=== PATIENT | male | born 1940 | race Asian ===

== ENCOUNTER 2020-05-17 12:17 | Inpatient (IN) | payer MEDICARE, OTHER ==
[2020-05-17] MEDS ORDERED: SODIUM CHLORIDE 0.9% 1,000 ML IV STA (13:25)
[2020-05-17] MEDS ORDERED: ONDANSETRON 4 MG/2 ML VIAL IVP STA (13:25)
[2020-05-17] MEDS ORDERED: MORPHINE SULFATE 4 MG/ML SYRINGE IVP STA (13:25)
[2020-05-17 13:36] LABS: Basophils % (A) 0 %; Eosinophils # (A) 0.1 k/uL (0-0.7); Eosinophils % (A) 1 %; HCT 45.7 % (39.0-53.0); HGB 15.7 gm/dL (13.0-17.5); Lymphocytes # (A) 0.8 k/uL (1.0-4.8); Lymphocytes % (A) 7 %; MCH 35.2 pg (25.0-35.0); MCHC 34.2 g/dL (31.0-37.0); MCV 102.9 fL (80.0-100.0); Macrocytosis Slight; Mean Platelet Volume 6.8; Monocytes # (A) 0.4 k/uL (0-1.0); Monocytes % (A) 3 %; Neutrophils # (A) 11.3 k/uL (1.3-7.7); Neutrophils % (A) 89 %; Platelet Count 138 k/uL (150-450); RBC 4.45 m/uL (4.30-5.90); RDW 12.9 % (11.5-15.5); WBC 12.7 k/uL (3.8-10.6)
[2020-05-17 13:41] LABS: ALT 32 U/L (4-49); AST 46 U/L (17-59); African American GFR (CKD) >90 (>60 ml/min/1.73 sqM); Albumin 4.9 g/dL (3.5-5.0); Alkaline Phosphatase 91 U/L (38-126); Amylase 97 U/L (30-110); Anion Gap 13 mmol/L; Blood Urea Nitrogen 13 mg/dL (9-20); Carbon Dioxide 25 mmol/L (22-30); Chloride 97 mmol/L (98-107); Glucose 172 mg/dL (74-99); Lipase 89 U/L (23-300); Non-African American GFR(CKD) 86 (>60 ml/min/1.73 sqM); Potassium 4.2 mmol/L (3.5-5.1); Sodium 135 mmol/L (137-145); Total Bilirubin 1.5 mg/dL (0.2-1.3); Total Protein 8.1 g/dL (6.3-8.2)
[2020-05-17 13:49] LABS: Prothrombin Time 10.3 sec (9.0-12.0)
[2020-05-17 13:54] LABS: Partial Thromboplastin Time 21.9 sec (22.0-30.0)
--- NOTE | 2020-05-17 14:33 | ED ---
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 Patient states the pain is near his umbilical region, no radiation. They did try some over -the-counter medications without improvement in his pain. He has been having normal bowel movements, does feel slightly constipated. He denies any fever or chills. He denies any chest pain or shortness of breath. He states the pain is severe, 9/10. He does have history of small colon resection secondary to cancer, abdominal aorta repair, cholecystectomy. Patient has no further complaints at this time. Upon arrival to the ER, his vitals are stable. - Related Data Home Medications Medication Instructions Recorded Confirmed Cimetidine 800 mg PO BID 05/17/20 05/17/20 Folic Acid 1 mg PO DAILY 05/17/20 05/17/20 Glucosamine Sulfate 1,000 mg PO DAILY 05/17/20 05/17/20 Methotrexate 50mg/2ml 50 mg IM TU 05/17/20 05/17/20 Metoprolol Tartrate [Lopressor] 50 mg PO BID 05/17/20 05/17/20 Multivitamins, Thera [Multivitamin 1 tab PO DAILY 05/17/20 05/17/20 (formulary)] [place]-3 Fatty Acids/Fish Oil [Fish 1 cap PO DAILY 05/17/20 05/17/20 Oil 1,000 mg Softgel] Pravastatin Sodium [Pravachol] 40 mg PO DAILY 05/17/20 05/17/20 lisinopriL [Zestril] 2.5 mg PO DAILY 05/17/20 05/17/20 metFORMIN HCL [metFORMIN HCL ER] 1,000 mg PO BID 05/17/20 05/17/20 sulfaSALAzine [Sulfasalazine] 1,000 mg PO TID 05/17/20 05/17/20 Allergies Allergy/AdvReac Type Severity Reaction Status Date / Time No Known Allergies Allergy Verified 05/17/20 14:25 Review of Systems ROS Statement: Those systems with pertinent positive or pertinent negative responses have been documented in the HPI. ROS Other: All systems not noted in ROS Statement are negative. Past Medical History Past Medical History: Cancer, Diabetes Mellitus Additional Past Medical History / Comment(s): colon cancer 2002, AAA repaired 04/2019 at [facility]. History of Any Multi-Drug Resistant Organisms: None Reported Past Surgical History: Cholecystectomy Additional Past Surgical History / Comment(s): gallstone removal. Smoking Status: Former smoker Past Alcohol Use History: None Reported Past Drug Use History: None Reported General Exam - General Exam Comments Initial Comments: GENERAL: Patient is well-developed and well-nourished. Patient is nontoxic and in mild acute distress. HEAD: Atraumatic, normocephalic. EYES: Pupils equal round and reactive to light, extraocular movements intact, sclera anicteric, conjunctiva are normal. Eyelids were unremarkable. ENT: TMs normal, nares patent, oropharynx clear without exudates. Moist mucous membranes. NECK: Normal range of motion, supple without lymphadenopathy or JVD. LUNGS: Unlabored respirations. Breath sounds clear to auscultation bilaterally and equal. No wheezes rales or rhonchi. HEART: Regular rate and rhythm without murmurs, rubs or gallops. ABDOMEN: Soft, patient appears to be tender to the entire abdomen, no specific area pain, positive guarding. normoactive bowel sounds. No masses appreciated. : Deferred MUSCULOSKELETAL: Normal extremities with adequate strength and normal range of motion, no pitting or edema. No clubbing or cyanosis. NEUROLOGICAL: Patient is alert and oriented x 3. Motor and sensory are also intact. Cranial nerves II through XII grossly intact. Symmetrical smile. Normal speech, normal gait. PSYCH: Normal mood, normal affect. SKIN: Warm, Dry, normal turgor, no rashes or lesions noted. Limitations: no limitations Course Vital Signs 05/17/20 05/17/20 12:29 15:24 Temperature 98.0 F Pulse Rate 79 62 Respiratory 18 18 Rate Blood Pressure 145/86 145/97 O2 Sat by Pulse 97 98 Oximetry Medical Decision Making - Medical Decision Making Patient is a 80-year-old male with history of diabetes, presenting for abdominal pain that started last night. It is severe in nature, tender to the entire abdomen, no specific area. His vitals are stable. He does have history of multiple abdominal surgeries including colon resection secondary to cancer. Labs show a white count 12.7, normal hemoglobin. Lactic acid is 2.0. Troponin is normal, normal EKG. CT of the abdomen shows a small bowel distraction of unknown etiology in the right mid abdomen, mid ileum. Patient was given fluids and pain control, currently reports on stable pain. He denies any nausea or vomiting at this time. I discussed case with Dr. Houston who agrees to admission with Dr. Bojorquez on consult, who I also spoke with. Patient is in agreement with this plan of care. We will place an NG tube. Case discussed with Dr. Mays. - Lab Data Result diagrams: 05/17/20 13:20 05/17/20 13:20 Lab Results 05/17/20 05/17/20 05/17/20 Range/Units 13:20 13:20 13:20 WBC 12.7 H (3.8-10.6) k/uL RBC 4.45 (4.30-5.90) m/uL Hgb 15.7 (13.0-17.5) gm/dL Hct 45.7 (39.0-53.0) % MCV 102.9 H (80.0-100.0) fL MCH 35.2 H (25.0-35.0) pg MCHC 34.2 (31.0-37.0) g/dL RDW 12.9 (11.5-15.5) % Plt Count 138 L (150-450) k/uL MPV 6.8 Neutrophils % 89 % Lymphocytes % 7 % Monocytes % 3 % Eosinophils % 1 % Basophils % 0 % Neutrophils # 11.3 H (1.3-7.7) k/uL Lymphocytes # 0.8 L (1.0-4.8) k/uL Monocytes # 0.4 (0-1.0) k/uL Eosinophils # 0.1 (0-0.7) k/uL Basophils # 0.0 (0-0.2) k/uL Macrocytosis Slight PT 10.3 (9.0-12.0) sec INR 1.0 (<1.2) APTT 21.9 L (22.0-30.0) sec Sodium 135 L (137-145) mmol/L Potassium 4.2 (3.5-5.1) mmol/L Chloride 97 L (98-107) mmol/L Carbon Dioxide 25 (22-30) mmol/L Anion Gap 13 mmol/L BUN 13 (9-20) mg/dL Creatinine 0.80 (0.66-1.25) mg/dL Est GFR (CKD-EPI)AfAm >90 (>60 ml/min/1.73 sqM) Est GFR (CKD-EPI)NonAf 86 (>60 ml/min/1.73 sqM) Glucose 172 H (74-99) mg/dL Plasma Lactic Acid Josef (0.7-2.0) mmol/L Calcium 10.0 (8.4-10.2) mg/dL Total Bilirubin 1.5 H (0.2-1.3) mg/dL AST 46 (17-59) U/L ALT 32 (4-49) U/L Alkaline Phosphatase 91 (38-126) U/L Troponin I (0.000-0.034) ng/mL Total Protein 8.1 (6.3-8.2) g/dL Albumin 4.9 (3.5-5.0) g/dL Amylase 97 (30-110) U/L Lipase 89 (23-300) U/L 05/17/20 05/17/20 Range/Units 13:20 14:27 WBC (3.8-10.6) k/uL RBC (4.30-5.90) m/uL Hgb (13.0-17.5) gm/dL Hct (39.0-53.0) % MCV (80.0-100.0) fL MCH (25.0-35.0) pg MCHC (31.0-37.0) g/dL RDW (11.5-15.5) % Plt Count (150-450) k/uL MPV Neutrophils % % Lymphocytes % % Monocytes % % Eosinophils % % Basophils % % Neutrophils # (1.3-7.7) k/uL Lymphocytes # (1.0-4.8) k/uL Monocytes # (0-1.0) k/uL Eosinophils # (0-0.7) k/uL Basophils # (0-0.2) k/uL Macrocytosis PT (9.0-12.0) sec INR (<1.2) APTT (22.0-30.0) sec Sodium (137-145) mmol/L Potassium (3.5-5.1) mmol/L Chloride (98-107) mmol/L Carbon Dioxide (22-30) mmol/L Anion Gap mmol/L BUN (9-20) mg/dL Creatinine (0.66-1.25) mg/dL Est GFR (CKD-EPI)AfAm (>60 ml/min/1.73 sqM) Est GFR (CKD-EPI)NonAf (>60 ml/min/1.73 sqM) Glucose (74-99) mg/dL Plasma Lactic Acid Josef 2.0 (0.7-2.0) mmol/L Calcium (8.4-10.2) mg/dL Total Bilirubin (0.2-1.3) mg/dL AST (17-59) U/L ALT (4-49) U/L Alkaline Phosphatase (38-126) U/L Troponin I 0.013 (0.000-0.034) ng/mL Total Protein (6.3-8.2) g/dL Albumin (3.5-5.0) g/dL Amylase (30-110) U/L Lipase (23-300) U/L - EKG Data EKG Comments: Normal sinus rhythm, normal ECG, no signs of acute ischemia. Ventricular rate 75, [place] interval 150, QTC 418. Disposition Clinical Impression: Small bowel obstruction Disposition: ADMITTED IP TO THIS [facility] Condition: Stable Referrals: Nonstaff,Physician [Primary Care Provider] - 1-2 days Decision Date: 05/17/20 Decision Time: 15:53
--- NOTE | 2020-05-17 15:37 | CT ---
EXAMINATION TYPE: CT abdomen pelvis w con DATE OF EXAM: 05/17/2020 COMPARISON: None INDICATION: Mid abdominal pain. DLP: 807.8 mGycm, Automated exposure control for dose reduction was used. CONTRAST: 100 mL of Isovue 300. Study performed without Oral Contrast TECHNIQUE: Axial images were obtained from above the diaphragm to the pubic rami in the axial plane a t 5 mm thick sections. Reconstructed images are reviewed on the computer in the coronal plane. FINDINGS: Limited CT sections are obtained the lung bases. There is some increased opacities within the bilate ral lung bases may be related to atelectasis. A small 0.3 cm nodule is at the posterior lateral right lung base.. CT ABDOMEN: Some minimal ascites is adjacent to the liver. Small amount of free fluid is within the d ependent pelvis. Liver: Normal Spleen: Normal Pancreas: Normal Adrenal glands: The adrenal glands are normal. Gallbladder: Normal Kidneys: No masses are evident. No hydronephrosis is present. No cysts are present. Delayed images were obtained through the kidneys, which remain unremarkable. Aorta: Vascular calcification is within the aorta. Inferior vena cava: Normal. CT PELVIS: There are multiple dilated small bowel loops containing fluid. This extends to the right midabdomen. The ileum distal to that is decompressed and extends to the anastomosis. Series 201 image 51, series 202 image 37. Urinary bladder: Normal. Genitourinary structures: Prostate is prominent with calcifications. Osseous structures: No suspicious lytic or sclerotic lesions are evident. Report was called to the emergency room physician by Dr. Deleon by telephone at the time of interpre tation. IMPRESSIONS: 1. Small bowel obstruction of unknown etiology in the right mid abdomen mid ileum.
[2020-05-17] MEDS ORDERED: MORPHINE SULFATE 4 MG/ML SYRINGE IV PRN (15:50)
[2020-05-17] MEDS ORDERED: ONDANSETRON 4 MG/2 ML VIAL IVP PRN (15:50)
[2020-05-17] MEDS ORDERED: NALOXONE 0.4 MG/ML 1 ML VIAL IV PRN (15:50)
[2020-05-17 16:54] LABS: Appearance,Urine Clear (Clear); Bilirubin,Urine Negative (Negative); Blood,Urine Negative (Negative); Color,Urine Yellow; Glucose,Urine (UA) Negative (Negative); Ketones,Urine 1+ (Negative); Leukocyte Esterase,Urine Negative (Negative); Nitrite,Urine Negative (Negative); Protein,Urine Negative (Negative); Specific Gravity,Urine 1.032 (1.001-1.035); Urobilinogen,Urine <2.0 mg/dL (<2.0)
[2020-05-17] MEDS: SODIUM CHLORIDE 0.9% 1,000 ML IV SCH (18:13)
--- NOTE | 2020-05-17 18:51 | XR ---
EXAMINATION TYPE: XR chest 1V DATE OF EXAM: 05/17/2020 COMPARISON: NONE HISTORY: Check tube placement TECHNIQUE: Single view FINDINGS: There is nasogastric tube. The tip is not well seen. Tip is probably in the distal esophagu s. There is some pleural reaction and atelectasis right lung base. There is no heart failure. IMPRESSION: NG tube not well seen and probably in the distal esophagus. Abdomen film would be helpful to visualize the tip of the tube.
--- NOTE | 2020-05-18 09:28 | P.HPIM ---
History of Present Illness H&P Date: 05/17/20 Chief Complaint: Abdominal pain 80-year-old male, history of abdominal aorta repair last year, colon cancer 2002, diabetes, presenting to the emergency Department with complaints of abdominal pain that started yesterday evening. Patient states the pain is near his umbilical region, no radiation. They did try some [id number] medications without improvement in his pain. He has been having normal bowel movements, does feel slightly constipated. He denies any fever or chills. He denies any chest pain or shortness of breath. He states the pain is severe, 9/10. He does have history of small colon resection secondary to cancer, abdominal aorta repair, cholecystectomy. Patient has no further complaints at this time. Upon arrival to the ER, his vitals are stable. Patient does have history of multiple abdominal surgeries Lab work done in ED reveals a white blood count of 12.7, hemoglobin 15.7 and platelet count of 138; lactic acid of 2.0; sodium 135 crit, potassium 4.2, BUN 13, creatinine 0.80 and blood glucose of 172; CT of the abdomen shows small bowel obstruction in right mid abdomen and mid ileum with questionable etiology Patient will have an NG tube placed and will be admitted for further evaluation by general surgery Review of Systems REVIEW OF SYSTEMS: CONSTITUTIONAL: No fever, no malaise, no fatigue. HEENT: No recent visual problems or hearing problems. Denied any sore throat. CARDIOVASCULAR: No chest pain, orthopnea, PND, no palpitations, no syncope. PULMONARY: No shortness of breath, no cough, no hemoptysis. GASTROINTESTINAL: No diarrhea, no nausea, no vomiting, no abdominal pain. NEUROLOGICAL: No headaches, no weakness, no numbness. HEMATOLOGICAL: Denies any bleeding or petechiae. GENITOURINARY: Denies any burning micturition, frequency, or urgency. MUSCULOSKELETAL/RHEUMATOLOGICAL: Denies any joint pain, swelling, or any muscle pain. ENDOCRINE: Denies any polyuria or polydipsia. The rest of the 14-point review of systems is negative. Past Medical History Past Medical History: Cancer, Diabetes Mellitus Additional Past Medical History / Comment(s): colon cancer 2002, AAA repaired 04/2019 at [facility]. History of Any Multi-Drug Resistant Organisms: None Reported Past Surgical History: Cholecystectomy Additional Past Surgical History / Comment(s): gallstone removal. Smoking Status: Former smoker Past Alcohol Use History: None Reported Past Drug Use History: None Reported Medications and Allergies Home Medications Medication Instructions Recorded Confirmed Type Cimetidine 800 mg PO BID 05/17/20 05/17/20 History Folic Acid 1 mg PO DAILY 05/17/20 05/17/20 History Glucosamine Sulfate 1,000 mg PO DAILY 05/17/20 05/17/20 History Methotrexate 50mg/2ml 50 mg IM TU 05/17/20 05/17/20 History Metoprolol Tartrate [Lopressor] 50 mg PO BID 05/17/20 05/17/20 History Multivitamins, Thera [Multivitamin 1 tab PO DAILY 05/17/20 05/17/20 History (formulary)] [place]-3 Fatty Acids/Fish Oil [Fish 1 cap PO DAILY 05/17/20 05/17/20 History Oil 1,000 mg Softgel] Pravastatin Sodium [Pravachol] 40 mg PO DAILY 05/17/20 05/17/20 History lisinopriL [Zestril] 2.5 mg PO DAILY 05/17/20 05/17/20 History metFORMIN HCL [metFORMIN HCL ER] 1,000 mg PO BID 05/17/20 05/17/20 History sulfaSALAzine [Sulfasalazine] 1,000 mg PO TID 05/17/20 05/17/20 History Allergies Allergy/AdvReac Type Severity Reaction Status Date / Time adhesive tape AdvReac Intermediate blisters/skin Verified 05/18/20 05:06 peeling Physical Exam Vitals: Vital Signs Temp Pulse Resp BP Pulse Ox 05/17/20 15:24 62 18 145/97 98 05/17/20 12:29 98.0 F 79 18 145/86 97 Intake and Output 05/17/20 05/17/20 05/17/20 06:59 14:59 22:59 Other: Weight 71.668 kg General appearance: Present: average body habitus, cooperative, no acute distress EENT; EOMI, PERRLA, normal appearance; normal oropharynx Neck: Present: normal ROM. Absent: lymphadenopathy, rigidity, thyromegaly Carotids: negative: bruit present Thyroid: bilateral: normal size, negative: enlarged, nodule Respiratory: bilateral: CTA, negative: rales, rhonchi, wheezing Cardiovascular; Rhythm: regular; normal: S1, S2; Absent: systolic murmur, diastolic murmur Gastrointestinal; Soft, patient appears to be tender to the entire abdomen, no specific area pain, positive guarding. normoactive bowel sounds. No masses appreciated. Genitourinary Comment(s): deferred Integumentary: Present: normal turgor. Absent: jaundiced, rash, ulcer Neurologic: Present: CNII-XII intact. Absent: focal deficits Musculoskeletal: Present: gait normal, strength equal bilaterally Psychiatric: Present: A&O x's 3, appropriate affect, intact judgment & insight Results CBC & Chem 7: 05/17/20 13:20 05/17/20 13:20 Labs: Abnormal Lab Results - Last 24 Hours (Table) 05/17/20 05/17/20 05/17/20 Range/Units 13:20 13:20 13:20 WBC 12.7 H (3.8-10.6) k/uL MCV 102.9 H (80.0-100.0) fL MCH 35.2 H (25.0-35.0) pg Plt Count 138 L (150-450) k/uL Neutrophils # 11.3 H (1.3-7.7) k/uL Lymphocytes # 0.8 L (1.0-4.8) k/uL APTT 21.9 L (22.0-30.0) sec Sodium 135 L (137-145) mmol/L Chloride 97 L (98-107) mmol/L Glucose 172 H (74-99) mg/dL Total Bilirubin 1.5 H (0.2-1.3) mg/dL Urine Ketones (Negative) 05/17/20 Range/Units 16:25 WBC (3.8-10.6) k/uL MCV (80.0-100.0) fL MCH (25.0-35.0) pg Plt Count (150-450) k/uL Neutrophils # (1.3-7.7) k/uL Lymphocytes # (1.0-4.8) k/uL APTT (22.0-30.0) sec Sodium (137-145) mmol/L Chloride (98-107) mmol/L Glucose (74-99) mg/dL Total Bilirubin (0.2-1.3) mg/dL Urine Ketones 1+ H (Negative) Assessment and Plan Assessment: 1. Small bowel obstruction - Patient will be admitted to general medical floor; Gen. surgery is consulted and recommendations are pending - NG tube placed in ED and will remain to suction; keep patient nothing by mouth; symptomatic treatment for abnormal pain and nausea with morphine sulfate and Zofran - Continue with IV fluids normal saline at rate of 75 mL an hour 2. Leukocytosis; possibly reactive; no signs of sepsis; we will monitor CBC closely and initiate sepsis workup if WBC continues to trend up 3. Hyperglycemia/diabetes mellitus; hold metformin; monitor Accu-Cheks every before meals and at bedtime with insulin sliding scale 4. Hypertension; patient takes Zestril 2.5 mg daily and metoprolol 50 mg twice a day; we will hold oral antihypertensive therapy until patient is nothing by mouth; we will use IV hydralazine for blood pressure control as needed 5. Hyperlipidemia; patient takes Pravachol 40 mg daily; we will hold till bowel obstruction resolved DVT prophylaxis; SCDs CODE STATUS; full code
[2020-05-18] MEDS: SODIUM CHLORIDE 0.9% 1,000 ML IV SCH ×2 (10:02→21:40)
--- NOTE | 2020-05-18 10:50 | P.GSCN ---
History of Present Illness Consult date: 05/18/20 History of present illness: 80-year-old male presented to the emergency department with complaints of abdominal pain. He states that the pain was in the periumbilical region and nonradiating. He states that the pain was quite intense. Denied any nausea or vomiting but did admit to abdominal distention. He states he has never had a previous symptomatology as this. He does have a surgical history of colon resection secondary to colon cancer along with cholecystectomy. He also has had an abdominal aortic repair that does appear endovascular. On workup, patient did have CT of the abdomen and pelvis which was concerning for a small bowel obstruction. Secondary to this, surgeries consult. Recommendation was made for nasogastric tube placement. The patient states that after the nasogastric tube was placed, his abdominal distention significantly resolved and abdominal pain significantly improved. He states that overnight he has had flatus. He denies any fevers, chills, chest pain or shortness of breath at this time. Review of Systems All systems: negative Past Medical History Past Medical History: Cancer, Diabetes Mellitus Additional Past Medical History / Comment(s): colon cancer 2002, AAA repaired 04/[facility] at [facility]. History of Any Multi-Drug Resistant Organisms: None Reported Past Surgical History: Cholecystectomy Additional Past Surgical History / Comment(s): gallstone removal. Past Anesthesia/Blood Transfusion Reactions: No Reported Reaction Smoking Status: Former smoker Past Alcohol Use History: None Reported Past Drug Use History: None Reported Medications and Allergies Home Medications Medication Instructions Recorded Confirmed Type Cimetidine 800 mg PO BID 05/17/20 05/17/20 History Folic Acid 1 mg PO DAILY 05/17/20 05/17/20 History Glucosamine Sulfate 1,000 mg PO DAILY 05/17/20 05/17/20 History Methotrexate 50mg/2ml 50 mg IM TU 05/17/20 05/17/20 History Metoprolol Tartrate [Lopressor] 50 mg PO BID 05/17/20 05/17/20 History Multivitamins, Thera [Multivitamin 1 tab PO DAILY 05/17/20 05/17/20 History (formulary)] [place]-3 Fatty Acids/Fish Oil [Fish 1 cap PO DAILY 05/17/20 05/17/20 History Oil 1,000 mg Softgel] Pravastatin Sodium [Pravachol] 40 mg PO DAILY 05/17/20 05/17/20 History lisinopriL [Zestril] 2.5 mg PO DAILY 05/17/20 05/17/20 History metFORMIN HCL [metFORMIN HCL ER] 1,000 mg PO BID 05/17/20 05/17/20 History sulfaSALAzine [Sulfasalazine] 1,000 mg PO TID 05/17/20 05/17/20 History Allergies Allergy/AdvReac Type Severity Reaction Status Date / Time adhesive tape AdvReac Intermediate blisters/skin Verified 05/18/20 05:06 peeling Surgical - Exam Osteopathic Statement: *. No significant issues noted on an osteopathic structural exam other than those noted in the History and Physical/Consult. Vital Signs Temp Pulse Resp BP Pulse Ox 98.0 F 79 18 145/86 97 05/17/20 12:29 05/17/20 12:29 05/17/20 12:29 05/17/20 12:29 05/17/20 12:29 - General well developed, well nourished, no distress - Eyes normal ocular movement - ENT no hearing loss - Neck trachea midline - Respiratory normal respiratory effort - Abdomen Soft, nontender, nondistended, no rebound, no guarding - Psychiatric oriented to time, oriented to person, oriented to place Results - Labs 05/17/20 13:20 05/17/20 13:20 Abnormal Lab Results - Last 24 Hours (Table) 05/17/20 05/17/20 05/17/20 Range/Units 13:20 13:20 13:20 WBC 12.7 H (3.8-10.6) k/uL MCV 102.9 H (80.0-100.0) fL MCH 35.2 H (25.0-35.0) pg Plt Count 138 L (150-450) k/uL Neutrophils # 11.3 H (1.3-7.7) k/uL Lymphocytes # 0.8 L (1.0-4.8) k/uL APTT 21.9 L (22.0-30.0) sec Sodium 135 L (137-145) mmol/L Chloride 97 L (98-107) mmol/L Glucose 172 H (74-99) mg/dL Total Bilirubin 1.5 H (0.2-1.3) mg/dL Urine Ketones (Negative) 05/17/20 Range/Units 16:25 WBC (3.8-10.6) k/uL MCV (80.0-100.0) fL MCH (25.0-35.0) pg Plt Count (150-450) k/uL Neutrophils # (1.3-7.7) k/uL Lymphocytes # (1.0-4.8) k/uL APTT (22.0-30.0) sec Sodium (137-145) mmol/L Chloride (98-107) mmol/L Glucose (74-99) mg/dL Total Bilirubin (0.2-1.3) mg/dL Urine Ketones 1+ H (Negative) Diabetes panel 05/17/20 Range/Units 13:20 Sodium 135 L (137-145) mmol/L Potassium 4.2 (3.5-5.1) mmol/L Chloride 97 L (98-107) mmol/L Carbon Dioxide 25 (22-30) mmol/L BUN 13 (9-20) mg/dL Creatinine 0.80 (0.66-1.25) mg/dL Glucose 172 H (74-99) mg/dL Calcium 10.0 (8.4-10.2) mg/dL AST 46 (17-59) U/L ALT 32 (4-49) U/L Alkaline Phosphatase 91 (38-126) U/L Total Protein 8.1 (6.3-8.2) g/dL Albumin 4.9 (3.5-5.0) g/dL Calcium panel 05/17/20 Range/Units 13:20 Calcium 10.0 (8.4-10.2) mg/dL Albumin 4.9 (3.5-5.0) g/dL Pituitary panel 05/17/20 Range/Units 13:20 Sodium 135 L (137-145) mmol/L Potassium 4.2 (3.5-5.1) mmol/L Chloride 97 L (98-107) mmol/L Carbon Dioxide 25 (22-30) mmol/L BUN 13 (9-20) mg/dL Creatinine 0.80 (0.66-1.25) mg/dL Glucose 172 H (74-99) mg/dL Calcium 10.0 (8.4-10.2) mg/dL Adrenal panel 05/17/20 Range/Units 13:20 Sodium 135 L (137-145) mmol/L Potassium 4.2 (3.5-5.1) mmol/L Chloride 97 L (98-107) mmol/L Carbon Dioxide 25 (22-30) mmol/L BUN 13 (9-20) mg/dL Creatinine 0.80 (0.66-1.25) mg/dL Glucose 172 H (74-99) mg/dL Calcium 10.0 (8.4-10.2) mg/dL Total Bilirubin 1.5 H (0.2-1.3) mg/dL AST 46 (17-59) U/L ALT 32 (4-49) U/L Alkaline Phosphatase 91 (38-126) U/L Total Protein 8.1 (6.3-8.2) g/dL Albumin 4.9 (3.5-5.0) g/dL - Imaging CT scan - abdomen: report reviewed, image reviewed CT scan - pelvis: report reviewed, image reviewed Assessment and Plan Plan: 80-year-old male with small bowel obstruction. After nasogastric tube insertion, patient has had much improvement. He states his abdominal pain is much improved along with his abdominal distention. We will obtain an abdominal x-ray to evaluate progress of obstruction resolution. Patient is also having flatus at this time. Continue nasogastric tube until further testing is completed. Continue nothing by mouth at this time.
[2020-05-18 11:00] LABS: Basophils % (A) 0 %; Eosinophils # (A) 0.1 k/uL (0-0.7); Eosinophils % (A) 2 %; HCT 40.4 % (39.0-53.0); HGB 13.6 gm/dL (13.0-17.5); Lymphocytes # (A) 0.9 k/uL (1.0-4.8); Lymphocytes % (A) 17 %; MCH 35.6 pg (25.0-35.0); MCHC 33.6 g/dL (31.0-37.0); Macrocytosis Slight; Mean Platelet Volume 6.8; Monocytes # (A) 0.3 k/uL (0-1.0); Monocytes % (A) 6 %; Neutrophils % (A) 74 %; RBC 3.81 m/uL (4.30-5.90); WBC 5.3 k/uL (3.8-10.6)
[2020-05-18 11:04] LABS: African American GFR (CKD) >90 (>60 ml/min/1.73 sqM); Anion Gap 4 mmol/L; Blood Urea Nitrogen 12 mg/dL (9-20); Calcium 8.4 mg/dL (8.4-10.2); Carbon Dioxide 28 mmol/L (22-30); Chloride 105 mmol/L (98-107); Glucose 113 mg/dL (74-99); Non-African American GFR(CKD) 88 (>60 ml/min/1.73 sqM); Potassium 3.8 mmol/L (3.5-5.1); Sodium 137 mmol/L (137-145)
--- NOTE | 2020-05-18 11:16 | XR ---
EXAMINATION TYPE: XR abdomen acute w cxr DATE OF EXAM: 05/18/2020 COMPARISON: None INDICATION: Small bowel obstruction TECHNIQUE: Abdomen is examined in the supine and upright views and supplemented with a frontal chest. FINDINGS: There is a normal bowel gas pattern. No suspicious dilated loops of bowel are evident. Fecal debris i s within the descending colon. Psoas margins are normal. No organomegaly is present. Stent within the right iliac internal and external iliac regions are present. Small right pleural eff usion may be present. There are air-fluid levels within small bowel loops within the epigastric region. Nasogastric tube is curled within the left upper quadrant of the abdomen. No free air is identified. IMPRESSION: 1. Couple of air-fluid levels remain present from patient's small bowel obstruction. Dilated loops of bowel are resolving.
[2020-05-18 11:17] LABS: Platelet Count 117 k/uL (150-450)
--- NOTE | 2020-05-18 16:34 | P.PN ---
Subjective Progress Note Date: 05/18/20 Principal diagnosis: Small bowel obstruction 80-year-old male with small bowel obstruction. After nasogastric tube insertion, patient has had much improvement. He states his abdominal pain is much improved along with his abdominal distention. We will obtain an abdominal x-ray to evaluate progress of obstruction resolution. Patient is also having flatus at this time. Continue nasogastric tube until further testing is completed. Continue nothing by mouth at this time. Repeat acute abdominal series reveals couple of air-fluid levels with dilated loops of bowel that are resolving Objective - Vital Signs Vital signs: Vital Signs Temp 97.4 F L 05/18/20 08:00 Pulse 62 05/18/20 08:00 Resp 19 05/18/20 08:00 BP 145/74 05/18/20 08:00 Pulse Ox 96 05/18/20 08:00 Intake & Output 05/17/20 05/18/20 05/18/20 18:59 06:59 18:59 Output Total 347 Balance -347 Weight 71.668 kg 71.668 kg Output: Gastric Drainage 347 Other: Voiding Method Urinal - Exam General appearance: Present: average body habitus, cooperative, no acute distress EENT; EOMI, PERRLA, normal appearance; normal oropharynx Neck: Present: normal ROM. Absent: lymphadenopathy, rigidity, thyromegaly Carotids: negative: bruit present Thyroid: bilateral: normal size, negative: enlarged, nodule Respiratory: bilateral: CTA, negative: rales, rhonchi, wheezing Cardiovascular; Rhythm: regular; normal: S1, S2; Absent: systolic murmur, diastolic murmur Gastrointestinal; Soft, patient appears to be tender to the entire abdomen, no specific area pain, positive guarding. normoactive bowel sounds. No masses appreciated. Genitourinary Comment(s): deferred Integumentary: Present: normal turgor. Absent: jaundiced, rash, ulcer Neurologic: Present: CNII-XII intact. Absent: focal deficits Musculoskeletal: Present: gait normal, strength equal bilaterally Psychiatric: Present: A&O x's 3, appropriate affect, intact judgment & insight - Labs CBC & Chem 7: 05/18/20 10:33 05/18/20 10:33 Labs: Abnormal Lab Results - Last 24 Hours (Table) 05/17/20 05/17/20 05/17/20 Range/Units 13:20 13:20 13:20 WBC 12.7 H (3.8-10.6) k/uL RBC (4.30-5.90) m/uL MCV 102.9 H (80.0-100.0) fL MCH 35.2 H (25.0-35.0) pg Plt Count 138 L (150-450) k/uL Neutrophils # 11.3 H (1.3-7.7) k/uL Lymphocytes # 0.8 L (1.0-4.8) k/uL APTT 21.9 L (22.0-30.0) sec Sodium 135 L (137-145) mmol/L Chloride 97 L (98-107) mmol/L Glucose 172 H (74-99) mg/dL Total Bilirubin 1.5 H (0.2-1.3) mg/dL Urine Ketones (Negative) 05/17/20 05/18/20 05/18/20 Range/Units 16:25 10:33 10:33 WBC (3.8-10.6) k/uL RBC 3.81 L (4.30-5.90) m/uL MCV 106.0 H (80.0-100.0) fL MCH 35.6 H (25.0-35.0) pg Plt Count 117 L (150-450) k/uL Neutrophils # (1.3-7.7) k/uL Lymphocytes # 0.9 L (1.0-4.8) k/uL APTT (22.0-30.0) sec Sodium (137-145) mmol/L Chloride (98-107) mmol/L Glucose 113 H (74-99) mg/dL Total Bilirubin (0.2-1.3) mg/dL Urine Ketones 1+ H (Negative) Assessment and Plan Assessment: 1. Small bowel obstruction - Patient will be admitted to general medical floor; Gen. surgery is consulted and recommendations are pending - NG tube placed in ED and will remain to suction; keep patient nothing by mouth; symptomatic treatment for abnormal pain and nausea with morphine sulfate and Zofran - Continue with IV fluids normal saline at rate of 75 mL an hour 2. Leukocytosis; possibly reactive; no signs of sepsis; we will monitor CBC closely and initiate sepsis workup if WBC continues to trend up 3. Hyperglycemia/diabetes mellitus; hold metformin; monitor Accu-Cheks every before meals and at bedtime with insulin sliding scale 4. Hypertension; patient takes Zestril 2.5 mg daily and metoprolol 50 mg twice a day; we will hold oral antihypertensive therapy until patient is nothing by mouth; we will use IV hydralazine for blood pressure control as needed 5. Hyperlipidemia; patient takes Pravachol 40 mg daily; we will hold till bowel obstruction resolved DVT prophylaxis; SCDs CODE STATUS; full code
[2020-05-19 09:10] LABS: HGB 12.6 g/dL (13.0-17.0); MCH 34.2 pg (27.0-32.0); MCHC 32.3 g/dL (32.0-37.0); Mean Platelet Volume 10.3 fL (9.5-12.2); Platelet Count 123 X 10*3/uL (140-440); RBC 3.68 X 10*6/uL (4.40-5.60); RDW 12.1 % (11.5-14.5); WBC 6.22 X 10*3/uL (4.50-10.00)
[2020-05-19 09:31] LABS: African American GFR (CKD) 104.8 (60.0-200.0); Anion Gap 12.9 mmol/L (4.00-12.00); Calcium 8.5 mg/dL (8.7-10.3); Carbon Dioxide 28.1 mmol/L (21.6-31.8); Non-African American GFR(CKD) 90.4 (60.0-200.0); Potassium 3.6 mmol/L (3.5-5.5)
--- NOTE | 2020-05-19 09:31 | P.PN ---
Subjective Progress Note Date: 05/19/20 Patient seen and examined at bedside. States his abdominal pain is greatly improved. Continues to state that he is having flatus. Nasogastric tube is in place and did have 1 L of output during overnight shift. Objective - Vital Signs Vital signs: Vital Signs Temp 98.0 F 05/19/20 02:00 Pulse 75 05/19/20 02:00 Resp 18 05/18/20 20:00 BP 144/64 05/19/20 02:00 Pulse Ox 94 L 05/19/20 02:00 Intake & Output 05/18/20 05/19/20 05/19/20 18:59 06:59 18:59 Intake Total 0 Output Total 4003 430 4610 Balance -1350 -200 -1050 Intake: Oral 0 Output: Gastric Drainage 1050 Urine 1350 200 Other: Voiding Method Urinal Urinal # Voids 1 - Constitutional General appearance: Present: cooperative, no acute distress - Gastrointestinal Gastrointestinal Comment(s): Soft, nontender, nondistended, no rebound, no guarding - Psychiatric Psychiatric: Present: A&O x's 3 - Labs CBC & Chem 7: 05/19/20 05:59 05/18/20 10:33 Labs: Abnormal Lab Results - Last 24 Hours (Table) 05/18/20 05/18/20 05/19/20 Range/Units 10:33 10:33 05:59 RBC 3.81 L 3.68 L (4.30-5.90) m/uL Hgb 12.6 L (13.0-17.0) g/dL Hct 39.0 L (39.6-50.0) % MCV 106.0 H 106.0 H (80.0-100.0) fL MCH 35.6 H 34.2 H (25.0-35.0) pg Plt Count 117 L 123 L (150-450) k/uL Lymphocytes # 0.9 L (1.0-4.8) k/uL Glucose 113 H (74-99) mg/dL Assessment and Plan Plan: 80-year-old male with small bowel obstruction. Acute abdominal series was ordered yesterday and was reviewed which did show a resolving obstruction. On my review, there is notable air within the left colon. Patient also has been having flatus. However, patient was noted to have a high amount of output from nasogastric tube yesterday during evening shift. We will plan for a repeat abdominal series this morning to make further recommendations as clinically it does appear that his bowel obstruction is improving, however there is concern based on the high output from the nasogastric tube.
[2020-05-19 09:47] LABS: Basophils # (A) 0.01 X 10*3/uL (0.00-0.10); Basophils % (A) 0.2 %; Eosinophils # (A) 0.09 X 10*3/uL (0.04-0.35); Eosinophils % (A) 1.4 %; Lymphocytes # (A) 0.94 X 10*3/uL (0.90-5.00); Lymphocytes % (A) 15.1 %; Monocytes % (A) 6.4 %; Neutrophils # (A) 4.77 X 10*3/uL (1.80-7.70); Neutrophils % (A) 76.7 %
[2020-05-19 09:48] LABS: Macrocytosis (M) 2+
--- NOTE | 2020-05-19 10:03 | XR ---
EXAMINATION TYPE: XR abdomen acute w cxr DATE RECEIVED ON: 05/19/2020 DATE PERFORMED: 05/19/2020 COMPARISON: 05/18/2020 HISTORY: Resolving small bowel obstruction TECHNIQUE: Frontal and lateral views of the chest are obtained. FINDINGS: The heart size is normal. The pulmonary vasculature is normal. Small right pleural effus ion is present. Nasogastric tube is present with the tip in the right upper quadrant of the abdomen. Some fecal debris is within the descending colon. Nonspecific bowel gas is within the upper abdomen. Free air is not identified. Previous air-filled small bowel loops appear to be diminishing. No mass e ffect is evident. Psoas margins are normal. Organomegaly is not evident. Stent and cholecystectomy cl ips remain present. IMPRESSION: 1. Resolving bowel changes. Radiographic changes for small bowel obstruction are not evident. 2. Persistent Small right pleural effusion
[2020-05-19] MEDS: SODIUM CHLORIDE 0.9% 1,000 ML IV SCH ×2 (10:12→22:28)
--- NOTE | 2020-05-19 15:41 | P.PN ---
Subjective Progress Note Date: 05/19/20 Principal diagnosis: Small bowel obstruction 80-year-old male with small bowel obstruction. After nasogastric tube insertion, patient has had much improvement. He states his abdominal pain is much improved along with his abdominal distention. We will obtain an abdominal x-ray to evaluate progress of obstruction resolution. Patient is also having flatus at this time. Continue nasogastric tube until further testing is completed. Continue nothing by mouth at this time. Repeat acute abdominal series reveals couple of air-fluid levels with dilated loops of bowel that are resolving 05/19/2020 Patient is seen and evaluated with at bedside; patient continues to have NG tube which has been removed from suction Vital signs are stable with temperature of 98.0, pulse 75, respiration 18 and blood pressure 144/64 Labs are reviewed and stable; patient had acute abdominal CTs done yesterday which did showed resolving obstruction; patient was seen by surgery for concerned about high amount of output from the NG tube; cervix we will repeat abdominal series and make further recommendations Objective - Vital Signs Vital signs: Vital Signs Temp 98.0 F 05/19/20 08:00 Pulse 78 05/19/20 08:00 Resp 19 05/19/20 08:00 BP 146/73 05/19/20 08:00 Pulse Ox 96 05/19/20 08:00 Intake & Output 05/18/20 05/19/20 05/19/20 18:59 06:59 18:59 Intake Total 0 Output Total 9908 447 5267 Balance -1350 -200 -1050 Intake: Oral 0 Output: Gastric Drainage 1050 Urine 1350 200 Other: Voiding Method Urinal Urinal # Voids 1 - Exam General appearance: Present: average body habitus, cooperative, no acute distress EENT; EOMI, PERRLA, normal appearance; normal oropharynx Neck: Present: normal ROM. Absent: lymphadenopathy, rigidity, thyromegaly Carotids: negative: bruit present Thyroid: bilateral: normal size, negative: enlarged, nodule Respiratory: bilateral: CTA, negative: rales, rhonchi, wheezing Cardiovascular; Rhythm: regular; normal: S1, S2; Absent: systolic murmur, diastolic murmur Gastrointestinal; Soft, patient appears to be tender to the entire abdomen, no specific area pain, positive guarding. normoactive bowel sounds. No masses appreciated. Genitourinary Comment(s): deferred Integumentary: Present: normal turgor. Absent: jaundiced, rash, ulcer Neurologic: Present: CNII-XII intact. Absent: focal deficits Musculoskeletal: Present: gait normal, strength equal bilaterally Psychiatric: Present: A&O x's 3, appropriate affect, intact judgment & insight - Labs CBC & Chem 7: 05/19/20 05:59 05/19/20 05:59 Labs: Abnormal Lab Results - Last 24 Hours (Table) 05/18/20 05/18/20 05/19/20 Range/Units 10:33 10:33 05:59 RBC 3.81 L 3.68 L (4.30-5.90) m/uL Hgb 12.6 L (13.0-17.0) g/dL Hct 39.0 L (39.6-50.0) % MCV 106.0 H 106.0 H (80.0-100.0) fL MCH 35.6 H 34.2 H (25.0-35.0) pg Plt Count 117 L 123 L (150-450) k/uL Plt Count Comment DECREASED A Lymphocytes # 0.9 L (1.0-4.8) k/uL Anion Gap (4.00-12.00) mmol/L Glucose 113 H (74-99) mg/dL Calcium (8.7-10.3) mg/dL 05/19/20 Range/Units 05:59 RBC (4.30-5.90) m/uL Hgb (13.0-17.0) g/dL Hct (39.6-50.0) % MCV (80.0-100.0) fL MCH (25.0-35.0) pg Plt Count (150-450) k/uL Plt Count Comment Lymphocytes # (1.0-4.8) k/uL Anion Gap 12.90 H (4.00-12.00) mmol/L Glucose (74-99) mg/dL Calcium 8.5 L (8.7-10.3) mg/dL Assessment and Plan Assessment: 1. Small bowel obstruction - Patient will be admitted to general medical floor; Gen. surgery is consulted and recommendations are pending - NG tube placed in ED and will remain to suction; keep patient nothing by mouth; symptomatic treatment for abnormal pain and nausea with morphine sulfate and Zofran - Continue with IV fluids normal saline at rate of 75 mL an hour 2. Leukocytosis; possibly reactive; no signs of sepsis; we will monitor CBC closely and initiate sepsis workup if WBC continues to trend up 3. Hyperglycemia/diabetes mellitus; hold metformin; monitor Accu-Cheks every before meals and at bedtime with insulin sliding scale 4. Hypertension; patient takes Zestril 2.5 mg daily and metoprolol 50 mg twice a day; we will hold oral antihypertensive therapy until patient is nothing by mouth; we will use IV hydralazine for blood pressure control as needed 5. Hyperlipidemia; patient takes Pravachol 40 mg daily; we will hold till bowel obstruction resolved DVT prophylaxis; SCDs CODE STATUS; full code
[2020-05-19] MEDS: hydrALAZINE HCL 20 MG/ML 1 ML VIAL IVP PRN (22:19)
--- NOTE | 2020-05-20 08:35 | P.PN ---
Subjective Progress Note Date: 05/20/20 Patient seen and examined at bedside. Yesterday, acute abdominal series revealed resolution of the small bowel obstruction along with clinical symptoms. He was tried on a trial of clear liquids and tolerated this well and nasogastric tube was removed. Currently, patient denies any pain. Denies any nausea or vomiting. States he continues to have flatus. Denies any bowel movement. Objective - Vital Signs Vital signs: Vital Signs Temp 97.1 F L 05/20/20 07:52 Pulse 63 05/20/20 07:52 Resp 16 05/20/20 07:52 BP 150/74 05/20/20 07:52 Pulse Ox 96 05/20/20 07:52 Intake & Output 05/19/20 05/20/20 05/20/20 18:59 06:59 18:59 Output Total 2250 Balance -2250 Output: Gastric Drainage 1250 Urine 1000 Other: Voiding Method Urinal Urinal # Voids 4 - Constitutional General appearance: Present: cooperative, no acute distress - Gastrointestinal Gastrointestinal Comment(s): Soft, nontender, mild distention, no rebound, no guarding - Psychiatric Psychiatric: Present: A&O x's 3 - Labs CBC & Chem 7: 05/19/20 05:59 05/19/20 05:59 Labs: Abnormal Lab Results - Last 24 Hours (Table) 05/19/20 05/19/20 Range/Units 05:59 05:59 RBC 3.68 L (4.40-5.60) X 10*6/uL Hgb 12.6 L (13.0-17.0) g/dL Hct 39.0 L (39.6-50.0) % MCV 106.0 H (80.0-97.0) fL MCH 34.2 H (27.0-32.0) pg Plt Count 123 L (140-440) X 10*3/uL Plt Count Comment DECREASED A Anion Gap 12.90 H (4.00-12.00) mmol/L Calcium 8.5 L (8.7-10.3) mg/dL Assessment and Plan Plan: 80-year-old male with small bowel obstruction that appears to be resolving. Patient has tolerated clear liquid diet with continued flatus. Will advance to full liquid diet. Await further bowel function. Progressing.
[2020-05-20 09:22] LABS: African American GFR (CKD) 104.8 (60.0-200.0); Anion Gap 8.4 mmol/L (4.00-12.00); BUN/Creat Ratio 12.86 Ratio (12.00-20.00); Calcium 8.5 mg/dL (8.7-10.3); Carbon Dioxide 27.6 mmol/L (21.6-31.8); Non-African American GFR(CKD) 90.4 (60.0-200.0)
[2020-05-20 09:28] LABS: Basophils # (A) 0.01 X 10*3/uL (0.00-0.10); Basophils % (A) 0.2 %; Eosinophils # (A) 0.15 X 10*3/uL (0.04-0.35); Eosinophils % (A) 2.7 %; HCT 36.6 % (39.6-50.0); HGB 12.5 g/dL (13.0-17.0); Lymphocytes # (A) 1.11 X 10*3/uL (0.90-5.00); Lymphocytes % (A) 20.1 %; MCH 35.1 pg (27.0-32.0); MCHC 34.2 g/dL (32.0-37.0); MCV 102.8 fL (80.0-97.0); Mean Platelet Volume 9.6 fL (9.5-12.2); Monocytes % (A) 9.1 %; Neutrophils # (A) 3.74 X 10*3/uL (1.80-7.70); Neutrophils % (A) 67.7 %; Platelet Count 117 X 10*3/uL (140-440); RBC 3.56 X 10*6/uL (4.40-5.60); RDW 11.9 % (11.5-14.5); WBC 5.52 X 10*3/uL (4.50-10.00)
[2020-05-20] MEDS: SODIUM CHLORIDE 0.9% 1,000 ML IV SCH (13:19)
[2020-05-20] MEDS: hydrALAZINE HCL 20 MG/ML 1 ML VIAL IVP PRN (21:44)
[2020-05-20] MEDS: METOPROLOL TARTRATE 50 MG TAB PO SCH (21:44)
--- NOTE | 2020-05-20 23:27 | P.PN ---
Subjective Progress Note Date: 05/20/20 Principal diagnosis: Acute small bowel obstruction. 80-year-old male with small bowel obstruction. After nasogastric tube insertion, patient has had much improvement. He states his abdominal pain is much improved along with his abdominal distention. We will obtain an abdominal x-ray to evaluate progress of obstruction resolution. Patient is also having flatus at this time. Continue nasogastric tube until further testing is completed. Continue nothing by mouth at this time. Repeat acute abdominal series reveals couple of air-fluid levels with dilated loops of bowel that are resolving 05/19/2020 Patient is seen and evaluated with at bedside; patient continues to have NG tube which has been removed from suction Vital signs are stable with temperature of 98.0, pulse 75, respiration 18 and blood pressure 144/64 Labs are reviewed and stable; patient had acute abdominal CTs done yesterday which did showed resolving obstruction; patient was seen by surgery for concerned about high amount of output from the NG tube; cervix we will repeat abdominal series and make further recommendations. 05/20/2020 Patient is resting in the bed comfortably. Abdominal pain has resolved. Acute abdominal series revealed resolution of small bowel obstruction. Patient was started on clear liquid diet and advance as tolerated. No complaints of nausea or vomiting. Able to pass flatus. No bowel movement yet. Patient has been afebrile. No complaints of chest pain or shortness of breath. General surgery is on board. Current medications reviewed. Objective - Vital Signs Vital signs: Vital Signs Temp 97.8 F 05/20/20 13:53 Pulse 66 05/20/20 13:53 Resp 19 05/20/20 13:53 BP 158/98 05/20/20 13:53 Pulse Ox 94 L 05/20/20 13:53 Intake & Output 05/20/20 05/20/20 05/21/20 06:59 18:59 06:59 Other: Voiding Method Urinal - Exam PHYSICAL EXAMINATION: Patient is lying in the bed comfortably, no acute distress, awake alert and oriented.. HEENT: Normocephalic. Neck is supple. Pupils reactive. Nostrils clear. Oral cavity is moist. Ears reveal no drainage. Neck reveals no JVD, carotid bruits, or thyromegaly. CHEST EXAMINATION: Trachea is central. Symmetrical expansion. Lung camara clear to auscultation and percussion. CARDIAC: Normal S1, S2 with no gallops. No murmurs ABDOMEN: Soft. Bowel sounds normal. No organomegaly. No abdominal bruits. Extremities: reveal no edema. No clubbing or cyanosis Neurologically awake, alert, oriented x3 with well-coordinated movements. No f ocal deficits noted Skin: No rash or skin lesions. Psychiatric: Coperative. Nonsuicidal Musculoskeletal: No joint swelling or deformity. Normal range of motion. - Labs CBC & Chem 7: 05/20/20 06:05 05/20/20 06:05 Labs: Abnormal Lab Results - Last 24 Hours (Table) 05/20/20 05/20/20 Range/Units 06:05 06:05 RBC 3.56 L (4.40-5.60) X 10*6/uL Hgb 12.5 L (13.0-17.0) g/dL Hct 36.6 L (39.6-50.0) % MCV 102.8 H (80.0-97.0) fL MCH 35.1 H (27.0-32.0) pg Plt Count 117 L (140-440) X 10*3/uL Calcium 8.5 L (8.7-10.3) mg/dL Assessment and Plan Assessment: 1. Small bowel obstruction. resolved. - NG tube Has been discontinued and patient will be started on clear liquid diet and advance as tolerated. symptomatic treatment for abnormal pain and nausea with morphine sulfate and Zofran - Continue with IV fluids normal saline at rate of 75 mL an hour 2. hx of Colon CA s/p resection 2. Leukocytosis; possibly reactive; no signs of sepsis;resolved 3. Hyperglycemia/diabetes mellitus; hold metformin; monitor Accu-Cheks every before meals and at bedtime with insulin sliding scale 4. Hypertension; patient takes Zestril 2.5 mg daily and metoprolol 50 mg twice a day; we will hold oral antihypertensive therapy until patient is nothing by mouth; we will use IV hydralazine for blood pressure control as needed 5. Hyperlipidemia; patient takes Pravachol 40 mg daily; we will hold till bowel obstruction resolved DVT prophylaxis; SCDs CODE STATUS; full code
[2020-05-21] MEDS: HEPARIN SODIUM,PORCINE 5,000 UNIT/ML 1 ML VIAL SQ SCH ×3 (00:26→15:17)
[2020-05-21] MEDS: SODIUM CHLORIDE 0.9% 1,000 ML IV SCH (00:26)
[2020-05-21] MEDS: METOPROLOL TARTRATE 50 MG TAB PO SCH (08:13)
[2020-05-21 08:35] LABS: Basophils # (A) 0.01 X 10*3/uL (0.00-0.10); Basophils % (A) 0.2 %; Eosinophils # (A) 0.17 X 10*3/uL (0.04-0.35); Eosinophils % (A) 3.3 %; HGB 13.4 g/dL (13.0-17.0); Lymphocytes # (A) 1.04 X 10*3/uL (0.90-5.00); MCH 34.6 pg (27.0-32.0); MCHC 33.5 g/dL (32.0-37.0); MCV 103.4 fL (80.0-97.0); Mean Platelet Volume 9.5 fL (9.5-12.2); Monocytes # (A) 0.51 X 10*3/uL (0.20-1.00); Monocytes % (A) 9.8 %; Neutrophils # (A) 3.46 X 10*3/uL (1.80-7.70); Neutrophils % (A) 66.3 %; Platelet Count 125 X 10*3/uL (140-440); RBC 3.87 X 10*6/uL (4.40-5.60); RDW 12.2 % (11.5-14.5); WBC 5.21 X 10*3/uL (4.50-10.00)
[2020-05-21] MEDS ORDERED: FOLIC ACID 1 MG TAB PO SCH (09:00)
[2020-05-21] MEDS ORDERED: PRAVASTATIN SODIUM 40 MG TAB PO SCH (09:00)
[2020-05-21 09:17] LABS: African American GFR (CKD) 104.8 (60.0-200.0); Anion Gap 8.5 mmol/L (4.00-12.00); BUN/Creat Ratio 8.57 Ratio (12.00-20.00); Calcium 8.9 mg/dL (8.7-10.3); Carbon Dioxide 26.5 mmol/L (21.6-31.8); Non-African American GFR(CKD) 90.4 (60.0-200.0); Potassium 3.7 mmol/L (3.5-5.5)
[2020-05-21] MEDS ORDERED: POTASSIUM CHLORIDE ER 10 MEQ TAB.ER.PRT PO STA (10:59)
--- NOTE | 2020-05-21 12:08 | P.PN ---
Subjective Progress Note Date: 05/21/20 Patient seen and examined at bedside. Continues to improve. Denies abdominal pain. Tolerating full liquid diet. States that he is having a significant amount of flatus but no bowel movement as of yet. Objective - Vital Signs Vital signs: Vital Signs Temp 98.7 F 05/21/20 07:42 Pulse 95 05/21/20 07:42 Resp 16 05/21/20 07:42 BP 129/76 05/21/20 07:42 Pulse Ox 95 05/21/20 01:53 Intake & Output 05/20/20 05/21/20 05/21/20 18:59 06:59 18:59 Output Total 550 Balance -550 Output: Urine 550 Other: Voiding Method Urinal - Constitutional General appearance: Present: cooperative, no acute distress - Gastrointestinal Gastrointestinal Comment(s): Soft, nontender, nondistended, no rebound, no guarding - Labs CBC & Chem 7: 05/21/20 05:49 05/21/20 05:49 Labs: Abnormal Lab Results - Last 24 Hours (Table) 05/21/20 05/21/20 Range/Units 05:49 05:49 RBC 3.87 L (4.40-5.60) X 10*6/uL MCV 103.4 H (80.0-97.0) fL MCH 34.6 H (27.0-32.0) pg Plt Count 125 L (140-440) X 10*3/uL BUN 6.0 L (9.0-27.0) mg/dL BUN/Creatinine Ratio 8.57 L (12.00-20.00) Ratio Glucose 111 H (70-110) mg/dL Assessment and Plan Plan: 80-year-old male with small bowel obstruction that appears to be resolved. He continues to have flatus and is tolerating diet without any nausea or vomiting. Continue to advance diet. He is surgically stable for discharge. I did recommend return to emergency department if any worsening of abdominal pain occurs. Recommended soft foods and maintenance for constipation using fiber supplementation as an outpatient.
[2020-05-21 13:46] VITALS: BP 167/89; PULSE 68; RESP 18; TEMP 97.5
[2020-05-21] MEDS ORDERED: METHOTREXATE IM SCH (21:06)
== END 2020-05-21 16:23 | disposition home or self-care (01) | DRG 390 ==
LOC: EC 12:17 → 4SSUR 15:53
PROVIDERS: ADMIT Internal Medicine; ATTEND Internal Medicine
PROC: 0D9670Z Drainage of Stomach with Drainage Device, Via Natural or Artificial Opening (ICD-10-PCS; principal; 2020-05-17)
DX: K56.609 Unspecified intestinal obstruction, unspecified as to partial versus complete obstruction (principal); Z20.822 Contact with and (suspected) exposure to COVID-19; D72.829 Elevated white blood cell count, unspecified; E11.65 Type 2 diabetes mellitus with hyperglycemia; E78.5 Hyperlipidemia, unspecified; I10 Essential (primary) hypertension; Z79.899 Other long term (current) drug therapy; Z85.038 Personal history of other malignant neoplasm of large intestine; Z87.891 Personal history of nicotine dependence; Z90.49 Acquired absence of other specified parts of digestive tract; Z79.84 Long term (current) use of oral hypoglycemic drugs
CPT/HCPCS: 36415; 71045; 74022; 74177; 80048; 80053; 81003; 82150; 83605; 83690; 84484; 85025; 85610; 85730; 87635; 93005; 99285